=== PATIENT | female | born 1985 | race Caucasian/White ===

== ENCOUNTER 2021-07-31 12:00 | Inpatient (IN) | payer BC ==
[2021-08-04 09:51] VITALS: BMI 41.2
[2021-08-05] MEDS ORDERED: XYLOCAINE 2%-EPI 1:100,000 20 ML VIAL ONE (07:36)
[2021-08-05] MEDS ORDERED: Bupivacaine 0.25% 10 ML VIAL ONE (07:36)
[2021-08-05] MEDS ORDERED: Heparin 5,000 UNITS/ML VIAL ONE (07:50)
[2021-08-05] MEDS ORDERED: cefOXitin Sodium/Dextrose 2 GM/50 ML BAG ONE (07:50)
[2021-08-05] MEDS ORDERED: Scopolamine 1.5 mg/72 hour Patch ONE (07:50)
[2021-08-05] MEDS ORDERED: Acetaminophen 500 MG TAB ONE (07:51)
[2021-08-05] MEDS ORDERED: Ketorolac Tromethamine 30 MG/ML VIAL ONE (07:51)
[2021-08-05] MEDS ORDERED: Fentanyl 250 MCG/5 ML VIAL ONE (11:26)
[2021-08-05] MEDS ORDERED: diphenhydrAMINE 50 MG/ML VIAL IVP PRN (11:38)
[2021-08-05] MEDS ORDERED: Dextrose 50% Abboject 50 ML SYRINGE SLOW IVP PRN (11:38)
[2021-08-05] MEDS ORDERED: Dextrose 5% in Water 1,000 ML IV PRN (11:38)
[2021-08-05] MEDS ORDERED: Morphine 4 MG/ML VIAL SLOW IVP PRN ×2 (11:38→12:11)
[2021-08-05] MEDS ORDERED: HumaLOG 300 UNITS/3 ML VIAL SC PRN (11:38)
[2021-08-05] MEDS ORDERED: hydrALAZINE 20 MG/ML VIAL SLOW IVP PRN (11:38)
[2021-08-05] MEDS ORDERED: Ondansetron PF 4 MG/2 ML Vial IVP PRN (11:38)
[2021-08-05] MEDS ORDERED: Lidocaine 1% PF 5 ML VIAL ONE (11:42)
[2021-08-05] MEDS ORDERED: diphenhydrAMINE 50 MG/ML VIAL ONE (11:42)
[2021-08-05] MEDS ORDERED: PROPOFOL 200 MG/20 ML VIAL ONE (11:42)
[2021-08-05] MEDS ORDERED: Rocuronium Bromide 10 MG/ML (10ML VIAL) ONE (11:42)
[2021-08-05] MEDS ORDERED: Glycopyrrolate 0.2 MG/ML 5 ML SYRINGE ONE (11:42)
[2021-08-05] MEDS ORDERED: Dexamethasone 20 MG/5 ML VIAL ONE (11:42)
[2021-08-05] MEDS ORDERED: Ondansetron PF 4 MG/2 ML Vial ONE (11:42)
[2021-08-05] MEDS ORDERED: Fentanyl 100 MCG/2 ML VIAL ONE (14:54)
[2021-08-05] MEDS ORDERED: Ondansetron HCl/PF 4 MG/2 ML Vial IVP PRN (14:59)
[2021-08-05] MEDS ORDERED: Promethazine HCl 25 MG/ML VIAL IM PRN (14:59)
[2021-08-05] MEDS ORDERED: Promethazine HCl 25 MG/ML VIAL IVPB PRN (14:59)
[2021-08-05] MEDS: Ketorolac Tromethamine 30 MG/ML VIAL IVP SCH ×2 (16:22→17:06)
[2021-08-05] MEDS: 1/2 NS w/KCL 20 mEq 1,000 ML IV SCH ×2 (17:06→20:32)
[2021-08-05] MEDS: Hydrocodone-Acetamin 15 ML UDCUP PO PRN (20:35)
[2021-08-05] MEDS ORDERED: Enoxaparin Sodium 40 MG/0.4 ML SYRINGE SC SCH (21:00)
[2021-08-06] MEDS: 1/2 NS w/KCL 20 mEq 1,000 ML IV SCH ×2 (00:07→08:22)
[2021-08-06] MEDS: Ketorolac Tromethamine 30 MG/ML VIAL IVP SCH ×3 (00:07→11:41)
[2021-08-06 04:30] LABS: #Basophils 0.1 thou/uL (0.0-0.2); #Lymphocytes 0.6 thou/uL (1.20-3.40); #Monocytes 0.4 thou/uL (0.11-0.59); #Neutrophils 9.9 thou/uL (1.40-6.50); %Eosinophils 0.1 % (0.0-10.0); %Lymphocytes 5.8 % (21.0-51.0); %Monocytes 3.6 % (0.0-10.0); %Neutrophils 89.4 % (42.0-75.0); Hemoglobin 11.5 g/dL (12.0-16.0); Mean Corpuscular HGB CONC 34.2 g/dL (32.0-36.0); Mean Corpuscular Hemoglobin 30.7 pg (27.0-31.0); Mean Corpuscular Volume 89.8 fL (78.0-98.0); Mean Platelet Volume 7.6 fL (7.4-10.4); Platelet Count 141 thou/uL (130-400); RBC Distribution Width 15.6 % (11.5-14.5); Red Blood Cell (RBC) Count 3.75 mill/uL (4.20-5.40); White Blood Cell (WBC) Count 11.1 thou/uL (4.8-10.8)
[2021-08-06 04:41] LABS: Anion Gap 11 mmol/L (10-20); BUN (Urea Nitrogen) 13 mg/dL (7.0-18.7); Calc. Creatinine Clearance 185 mL/min (70-130); Calcium 8.7 mg/dL (7.8-10.44); Carbon Dioxide 23 mmol/L (22-29); Chloride 105 mmol/L (98-107); Glucose 137 mg/dL (70-105); Potassium 4.4 mmol/L (3.5-5.1); Sodium 135 mmol/L (136-145)
[2021-08-06] MEDS: Hydrocodone-Acetamin 15 ML UDCUP PO PRN (08:23)
[2021-08-06] MEDS ORDERED: Pantoprazole 40 MG VIAL IVP SCH (09:00)
[2021-08-06 11:27] VITALS: BP 143/74; TEMP 97.8
== END 2021-08-06 14:42 | disposition home or self-care (01) | DRG 621 ==
LOC: SURG A 08-05 07:19 → EDSTATUS 08-05 12:00 → SURG A 08-05 16:24
PROVIDERS: ADMIT Specialist; ATTEND Specialist
PROC: 0D164ZA Bypass Stomach to Jejunum, Percutaneous Endoscopic Approach (ICD-10-PCS; principal; 2021-08-05)
PROC: 0FB14ZX Excision of Right Lobe Liver, Percutaneous Endoscopic Approach, Diagnostic (ICD-10-PCS; 2021-08-05)
DX: E66.01 Morbid (severe) obesity due to excess calories (principal); Z20.822 Contact with and (suspected) exposure to COVID-19; Z68.41 Body mass index [BMI] 40.0-44.9, adult; E11.9 Type 2 diabetes mellitus without complications; K76.0 Fatty (change of) liver, not elsewhere classified; Z79.4 Long term (current) use of insulin
CPT/HCPCS: 36415; 36416; 80048; 85025; 88307; 88313; 94640; A4649; C1713; C1889; C9113; J0694; J1100; J1200; J1644; J1650; J1885; J2270; J2405; J2704; J3010; J3480; J7620; S0020

== ENCOUNTER 2021-07-31 12:06 | Outpatient (CLI) | payer BC ==
[2021-07-31 14:55] LABS: Anion Gap 11 mmol/L (10-20); BUN (Urea Nitrogen) 13 mg/dL (7.0-18.7); Calc. Creatinine Clearance 0 mL/min (70-130); Calcium 9.1 mg/dL (7.8-10.44); Carbon Dioxide 26 mmol/L (22-29); Chloride 105 mmol/L (98-107); Glucose 93 mg/dL (70-105); Potassium 3.6 mmol/L (3.5-5.1); Sodium 138 mmol/L (136-145)
[2021-08-01 14:13] LABS: SARS-CoV-2 PCR by NAA Not Detected (NotDetected)
== END 2021-07-31 12:07 | disposition home or self-care (01) ==
LOC: LABBT 12:06
PROVIDERS: ATTEND Specialist
DX: Z01.812 Encounter for preprocedural laboratory examination (principal); Z20.822 Contact with and (suspected) exposure to COVID-19
CPT/HCPCS: 80048; 93005; 93010; U0003; U0005

== ENCOUNTER 2023-08-03 07:11 | Day surgery (SDC) | payer BC ==
[2023-08-02 10:11] VITALS: BMI 30.7
[2023-08-03] MEDS ORDERED: Bupivacaine PF 0.5% 30 ML VIAL ONE (08:16)
[2023-08-03] MEDS ORDERED: EPINEPHrine 1 MG/ML VIAL ONE (08:16)
[2023-08-03] MEDS ORDERED: Thrombin 5000 UNITS/5 ML VIAL ONE (08:16)
[2023-08-03] MEDS ORDERED: HYDROmorphone 0.5 MG/0.5 ML SYRINGE ONE (08:48)
[2023-08-03 08:59] LABS: Anion Gap 11 mmol/L (10-20); BUN (Urea Nitrogen) 8 mg/dL (7.0-18.7); Calc. Creatinine Clearance 156 mL/min (70-130); Carbon Dioxide 24 mmol/L (22-29); Chloride 110 mmol/L (98-107); Estimated GFR 117; Glucose 78 mg/dL (70-105); Potassium 3.6 mmol/L (3.5-5.1); Sodium 141 mmol/L (136-145)
[2023-08-03] MEDS ORDERED: fentaNYL PF 100 MCG/2 ML SYRINGE ONE ×2 (09:00→10:50)
[2023-08-03] MEDS ORDERED: CEFAZOLIN 2 GM VIAL ONE ×2 (09:00→12:39)
[2023-08-03] MEDS ORDERED: Sodium Chloride 0.9% 100 ML ONE ×2 (09:00→12:39)
[2023-08-03] MEDS ORDERED: PROPOFOL 20 ML ONE (09:00)
[2023-08-03] MEDS ORDERED: Lidocaine 2% PF 5 ML VIAL ONE (09:00)
[2023-08-03] MEDS ORDERED: Rocuronium Bromide 10 MG/ML (10ML VIAL) ONE ×2 (09:00→09:12)
[2023-08-03] MEDS ORDERED: Dexamethasone 20 MG/5 ML VIAL ONE ×2 (09:01→09:12)
[2023-08-03] MEDS ORDERED: Ondansetron PF 4 MG/2 ML Vial ONE ×2 (09:01→09:12)
[2023-08-03] MEDS ORDERED: PROPOFOL 200 MG/20 ML VIAL ONE (09:12)
[2023-08-03] MEDS ORDERED: NEOSTIGMINE 3 MG/3 ML SYR 3 MG/3 ML SYRINGE ONE ×2 (09:12→10:05)
[2023-08-03] MEDS ORDERED: Glycopyrrolate 0.2 MG/ML 5 ML SYRINGE ONE ×2 (09:12→10:05)
[2023-08-03] MEDS ORDERED: Albuterol HFA (OR) 200 PUFF INH ONE ×2 (09:12→10:22)
[2023-08-03] MEDS ORDERED: Lidocaine 1% PF 5 ML VIAL ONE (09:12)
[2023-08-03] MEDS ORDERED: fentaNYL 50 mcg/mL 1 mL Vial ONE (10:23)
== END 2023-08-03 13:17 | disposition home or self-care (01) ==
LOC: SDC 07:11
PROVIDERS: ATTEND Neurological Surgery
PROC: 0SB20ZZ Excision of Lumbar Vertebral Disc, Open Approach (ICD-10-PCS; principal; 2023-08-03)
DX: M51.16 Intervertebral disc disorders with radiculopathy, lumbar region (principal); E11.9 Type 2 diabetes mellitus without complications; Z98.84 Bariatric surgery status
CPT/HCPCS: 80048; 93005; 93010; J0171; J1100; J1170; J2001; J2405; J2704; J3010; J3490; S0020